=== PATIENT | male | born 2000 | race Asian ===

== ENCOUNTER 2023-01-10 02:39 | Emergency (ER) | payer OTHER ==
[2023-01-10 02:51] VITALS: BP 126/76; PULSE 88; RESP 18; TEMP 97.6; BMI 22.9
[2023-01-10] MEDS ORDERED: DIPHTH,PERTUSS(ACELL),TET 0.5 ML DISP.SYRIN IM ONE ×2 (04:06→04:08)
[2023-01-10] MEDS ORDERED: BACITRACIN ZINC 15 GM TUBE TOPICAL OINTMENT ONE (04:41)
== END 2023-01-10 04:50 | disposition home or self-care (01) ==
LOC: JER 02:39
PROC: 3E0234Z Introduction of Serum, Toxoid and Vaccine into Muscle, Percutaneous Approach (ICD-10-PCS; principal; 2023-01-10)
DX: S50.812A Abrasion of left forearm, initial encounter (principal); V43.52XA Car driver injured in collision with other type car in traffic accident, initial encounter; W22.10XA Striking against or struck by unspecified automobile airbag, initial encounter; Y92.410 Unspecified street and highway as the place of occurrence of the external cause
CPT/HCPCS: 90715; 99281-25